=== PATIENT | male | born 1995 | race African-American/Black ===

== ENCOUNTER 2019-02-12 20:36 | Emergency (ER) | payer BC ==
[~2019-02-12] VITALS: Ht 182.9 cm; Wt 72.6 kg
[2019-02-12 22:41] LABS: ABSOLUTE NEUTROPHILS 4.8 thou/uL (1.4-8.2); BASOPHILS 0.3 % (0.0-2.0); EOSINOPHILS 1.9 % (0.0-3.0); HEMOGLOBIN 13.1 gm/dL (14.0-18.0); LYMPHOCYTES 12.9 % (24.0-44.0); MCH 25.6 pg (26.0-34.0); MCHC 31.3 g/dL (28.0-37.0); MCV 81.8 fL (80.0-100.0); MONOCYTES 5.7 % (1.0-8.0); PLATELET COUNT 140 thou/uL (150-400); POLYS 79.2 % (36.0-66.0); RBC 5.14 mil/uL (4.50-6.00); RDW 13.1 % (10.5-14.5)
[2019-02-12 23:03] LABS: CALCIUM 9.5 mg/dL (8.5-10.1); CREATININE 1.1 mg/dL (0.7-1.3); POTASSIUM 3.7 mmol/L (3.5-5.1)
[2019-02-12 23:08] LABS: ALBUMIN 4.2 g/dL (3.4-5.0); TOTAL PROTEIN 8.2 g/dL (6.4-8.2)
[2019-02-12] MEDS ORDERED: DOXYCYCLINE 10100 MG PO (23:23)
[2019-02-12] MEDS ORDERED: IBUPROFEN 600600 M1 PO (23:23)
[2019-02-12 23:35] LABS: LARGE PLATELETS OCCASIONAL
[2019-02-12 23:40] VITALS: BP 121/83
== END 2019-02-12 23:45 | disposition home or self-care (01) ==
LOC: ER 20:36
PROVIDERS: Physician Assistant
DX: L03.116 Cellulitis of left lower limb (principal); R50.9 Fever, unspecified